=== PATIENT | male | born 1955 | race Caucasian/White ===

== ENCOUNTER 2018-05-06 10:06 | Outpatient (CLI) | payer OTHER ==
[2018-05-06 10:49] LABS: CALCIUM 9.4 mg/dL (8.5-10.3); CREATININE 1.2 mg/dL (0.6-1.2)
[2018-05-06 11:01] LABS: HB2 TOTAL 19.2 g/dL; HEMOGLOBIN A1C 0.97 g/dL; HEMOGLOBIN A1C % 6.8 % (4.6-6.2)
== END 2018-05-06 10:07 | disposition home or self-care (01) ==
LOC: LAB 10:06
PROVIDERS: ATTEND Physician Assistant Medical
DX: E11.9 Type 2 diabetes mellitus without complications (principal); Z12.5 Encounter for screening for malignant neoplasm of prostate
CPT/HCPCS: 36415; 80048; 82043; 83036; 84153

== ENCOUNTER 2018-05-10 09:47 | Outpatient (CLI) | payer OTHER ==
[2018-05-10] MEDS ORDERED: LIDOCAINE-MPF 1% 5 ML VIAL IU ONE (09:48)
[2018-05-10] MEDS ORDERED: ROPIVACAINE 0.5% PF 20 ML AMPULE IU ONE (14:00)
[2018-05-10] MEDS ORDERED: LIDOCAINE 1% 2 ML VIAL SUBQ ONE (14:04)
[2018-05-10] MEDS ORDERED: TRIAMCINOLONE 40 MG/ML VIAL IM ONE (14:07)
--- NOTE | 2018-05-10 14:33 | Ultrasound Report ---
Reason: ADHESIVE CAPSULITIS OF RIGHT SHOULDER Procedure Date: 05/10/2018 Accession Number: [id number] / [id number] Procedure: US - Injection Single Tendon CPT Code: 56892 FULL RESULT: EXAM: RIGHTSHOULDER/BICEPS TENDON SHEATH INJECTION WITH ULTRASOUND GUIDANCE EXAM DATE: 05/10/2018 10:09 AM. CLINICAL HISTORY: Adhesive capsulitis of right shoulder. COMPARISON: None. TECHNIQUE: The risks, benefits, and alternatives of the procedure were discussed with the patient. All questions were answered. Written and verbal consent were obtained. The right shoulder joint was marked under ultrasound and prepped and draped in a sterile manner. Local anesthesia was performed with 1% lidocaine. A 22-gauge needle was then inserted into the biceps tendon sheath. Needle placement in the tendon sheath was confirmed with injection of a small quantity of lidocaine under live ultrasound. A solution containing 2 mL 0.5% ropivacaine, and 1 mL (40 mg/mL) of Kenalog was then injected. The needle was removed without immediate complication. Other: None. Fluoroscopy Time: 0 minutes. Number of fluoroscopy images: None. FINDINGS: Bones and joints: No tendinopathy detected by ultrasound. Injection: Ultrasound images demonstrate needle placement in the right biceps tendon sheath. IMPRESSION: Successful ultrasound guided injection of anesthetic and steroid in the right biceps tendon sheath at the level of the right humeral head/shoulder joint. [facility]
[2018-05-10] MEDS ORDERED: ROPIVACAINE EPI SCH (15:00)
[2018-05-10] MEDS ORDERED: SODIUM CHLORIDE 0.9% EPI SCH (15:00)
== END 2018-05-10 09:48 | disposition home or self-care (01) ==
LOC: DI 09:47
PROVIDERS: ATTEND Orthopaedic Surgery Sports Medicine
DX: M75.01 Adhesive capsulitis of right shoulder (principal)
CPT/HCPCS: 20550

== ENCOUNTER 2018-10-07 09:42 | Outpatient (CLI) | payer OTHER, MEDICARE ==
[2018-10-07 10:41] LABS: HB2 TOTAL 19.2 g/dL; HEMOGLOBIN A1C 1.35 g/dL; HEMOGLOBIN A1C % 8.6 % (4.6-6.2)
[2018-10-07 10:45] LABS: CALCIUM 9.5 mg/dL (8.5-10.3); CREATININE 1.2 mg/dL (0.6-1.2)
== END 2018-10-07 09:43 | disposition home or self-care (01) ==
LOC: LAB 09:42
PROVIDERS: ATTEND Physician Assistant Medical
DX: E11.9 Type 2 diabetes mellitus without complications (principal); E03.9 Hypothyroidism, unspecified; Z12.5 Encounter for screening for malignant neoplasm of prostate
CPT/HCPCS: 36415; 80048; 82043; 83036; 84153; 84443

== ENCOUNTER 2019-02-07 08:13 | Outpatient (CLI) | payer MEDICARE ==
[2019-02-07 08:31] LABS: BASOPHILS % (AUTO) 0.6 %; EOSINOPHILS # (AUTO) 0.2 10^3/uL (0.0-0.7); HGB - HEMOGLOBIN 15.9 g/dL (14.0-18.0); LYMPHOCYTES # (AUTO) 1.3 10^3/uL (1.5-3.5); LYMPHOCYTES % (AUTO) 19.3 %; MEAN CORPUSCULAR HEMOGLOBIN 29.6 pg (27.0-31.0); MEAN CORPUSCULAR HGB CONC 33.3 g/dL (32.0-36.0); MEAN CORPUSCULAR VOLUME 88.7 fL (80.0-94.0); MEAN PLATELET VOLUME 8.9 fL (7.4-11.4); MONOCYTES # (AUTO) 0.4 10^3/uL (0.0-1.0); MONOCYTES % (AUTO) 6.7 %; NEUTROPHILS # (AUTO) 4.6 10^3/uL (1.5-6.6); NEUTROPHILS % (AUTO) 70.1 %; PLT - PLATELET COUNT 186 10^3/uL (130-450); RED BLOOD COUNT 5.38 10^6/uL (4.70-6.10); RED CELL DISTRIBUTION WIDTH 12.4 % (12.0-15.0); WHITE BLOOD COUNT 6.6 x10^3/uL (4.8-10.8)
[2019-02-07 08:51] LABS: ALBUMIN 4.2 g/dL (3.2-5.5); ALBUMIN/GLOBULIN RATIO 1.6 (1.0-2.2); ALKALINE PHOSPHATASE 57 IU/L (42-121); ALT ALANINE AMINOTRANSFERASE 23 IU/L (10-60); AST ASPARTATE AMINOTRANSFERASE 18 IU/L (10-42); BILIRUBIN,TOTAL 1.2 mg/dL (0.2-1.0); BUN - BLOOD UREA NITROGEN 12 mg/dL (6-20); CALCIUM 9.2 mg/dL (8.5-10.3); CARBON DIOXIDE - CO2 30 mmol/L (21-32); CHLORIDE 99 mmol/L (101-111); CHOL/HDL RATIO 3.1 (<5.0); CHOLESTEROL 102 mg/dL; CREATININE 0.9 mg/dL (0.6-1.2); GFR - MDRD 85 (>89); GLUCOSE 251 mg/dL (70-100); HDL CHOLESTEROL 33 mg/dL; LDL CHOLESTEROL,CALCULATED 52 mg/dL; LDL/HDL RATIO 1.6 (<3.6); SODIUM 136 mmol/L (135-145); TOTAL PROTEIN 6.9 g/dL (6.7-8.2); VLDL CHOLESTEROL 17 mg/dL
[2019-02-07 09:31] LABS: THYROID STIMULATING HORMONE 11.24 uIU/mL (0.34-5.60)
[2019-02-07 09:33] LABS: FREE T4 (FREE THYROXINE) 0.85 ng/dL (0.58-1.64)
[2019-02-07 09:41] LABS: HB2 TOTAL 16.7 g/dL; HEMOGLOBIN A1C 1.31 g/dL; HEMOGLOBIN A1C % 9.3 % (4.6-6.2)
== END 2019-02-07 08:14 | disposition home or self-care (01) ==
LOC: LAB 08:13
PROVIDERS: ATTEND Family Medicine
DX: E87.5 Hyperkalemia (principal); E03.9 Hypothyroidism, unspecified; E78.5 Hyperlipidemia, unspecified; I10 Essential (primary) hypertension; E11.9 Type 2 diabetes mellitus without complications
CPT/HCPCS: 36415; 80053; 80061; 83036; 83721; 84439; 84443; 84481; 85025

== ENCOUNTER 2019-04-30 10:35 | Outpatient (CLI) | payer MEDICARE ==
[2019-04-30 11:01] LABS: CALCIUM 9.2 mg/dL (8.5-10.3); CREATININE 1.1 mg/dL (0.6-1.2)
[2019-04-30 12:27] LABS: HB2 TOTAL 17.7 g/dL; HEMOGLOBIN A1C 1.38 g/dL; HEMOGLOBIN A1C % 9.3 % (4.6-6.2)
== END 2019-04-30 10:36 | disposition home or self-care (01) ==
LOC: LAB 10:35
PROVIDERS: ATTEND Family Medicine
DX: E03.9 Hypothyroidism, unspecified (principal); I10 Essential (primary) hypertension; E11.9 Type 2 diabetes mellitus without complications
CPT/HCPCS: 36415; 80048; 83036; 84443

== ENCOUNTER 2019-07-30 09:37 | Outpatient (CLI) | payer MEDICARE ==
[2019-07-30 09:59] LABS: CALCIUM 9.2 mg/dL (8.5-10.3); CREATININE 1.1 mg/dL (0.6-1.2)
[2019-07-30 10:09] LABS: HB2 TOTAL 17.7 g/dL; HEMOGLOBIN A1C 1.3 g/dL; HEMOGLOBIN A1C % 8.9 % (4.6-6.2)
== END 2019-07-30 09:38 | disposition home or self-care (01) ==
LOC: LAB 09:37
PROVIDERS: ATTEND Family Medicine
DX: E11.9 Type 2 diabetes mellitus without complications (principal)
CPT/HCPCS: 36415; 80048; 83036

== ENCOUNTER 2019-10-29 08:44 | Outpatient (CLI) | payer MEDICARE ==
[2019-10-29 09:08] LABS: CALCIUM 9.4 mg/dL (8.5-10.3); CREATININE 1.1 mg/dL (0.6-1.2)
== END 2019-10-29 08:45 | disposition home or self-care (01) ==
LOC: LAB 08:44
PROVIDERS: ATTEND Family Medicine
DX: E11.9 Type 2 diabetes mellitus without complications (principal)
CPT/HCPCS: 36415; 80048; 81599; 83036